=== PATIENT | female | born 1970 | race Caucasian/White ===

== ENCOUNTER 2023-11-20 23:48 | Emergency (ER) | payer OTHER, BC ==
[~2023-11-20] VITALS: Ht 167.6 cm; Wt 113.4 kg
[2023-11-21 00:18] VITALS: BP 153/103
== END 2023-11-21 01:02 | disposition home or self-care (01) ==
LOC: ER 23:48
DX: S86.912A Strain of unspecified muscle(s) and tendon(s) at lower leg level, left leg, initial encounter (principal); W01.0XXA Fall on same level from slipping, tripping and stumbling without subsequent striking against object, initial encounter
CPT/HCPCS: 73590; 99283